=== PATIENT | male | born 1990 | race Hispanic/Latino ===

== ENCOUNTER 2019-03-24 07:52 | Emergency (ER) | payer SELFPAY ==
[2019-03-24] MEDS ORDERED: Morphine 4 MG/ML VIAL ONE (08:26)
[2019-03-24] MEDS ORDERED: Ondansetron PF 4 MG/2 ML Vial ONE (08:26)
[2019-03-24 08:50] LABS: #Lymphocytes 0.7 thou/uL (1.20-3.40); #Monocytes 0.6 thou/uL (0.11-0.59); #Neutrophils 8.8 thou/uL (1.40-6.50); %Basophils 0.1 % (0.0-1.0); %Eosinophils 0.4 % (0.0-10.0); %Lymphocytes 6.8 % (21.0-51.0); %Monocytes 6.2 % (0.0-10.0); %Neutrophils 86.5 % (42.0-75.0); Hemoglobin 14.1 g/dL (14.0-18.0); Mean Corpuscular HGB CONC 35.4 g/dL (32.0-36.0); Mean Corpuscular Hemoglobin 31.1 pg (27.0-31.0); Mean Platelet Volume 8.1 fL (7.4-10.4); Platelet Count 272 thou/uL (130-400); RBC Distribution Width 11.7 % (11.5-14.5); Red Blood Cell (RBC) Count 4.52 mill/uL (4.70-6.10); White Blood Cell (WBC) Count 10.2 thou/uL (4.8-10.8)
--- NOTE | 2019-03-24 09:07 | ULT ---
Exam: Right upper quadrant ultrasound: HISTORY: Right upper quadrant pain COMPARISON: None FINDINGS: Visualized liver:Borderline enlarged. Gallbladder:No evidence of gallstones, wall thickening, edema, or pericholecystic fluid. Common bile duct:Within normal limits. The visualized pancreas and right kidney are unremarkable. No evidence for abscess or abnormal fluid collection in the right upper quadrant. IMPRESSION: Unremarkable right upper quadrant ultrasound. No evidence of gallstones.
[2019-03-24 09:08] LABS: ALT (SGPT) 27 U/L (8-55); AST (SGOT) 16 U/L (5-34); Albumin 4.3 g/dL (3.5-5.0); Alkaline Phosphatase 98 U/L (40-150); Anion Gap 9 mmol/L (10-20); BUN (Urea Nitrogen) 15 mg/dL (8.9-20.6); Bilirubin, Total 0.9 mg/dL (0.2-1.2); Calc. Creatinine Clearance 0 mL/min (70-130); Calcium 8.8 mg/dL (7.8-10.44); Carbon Dioxide 25 mmol/L (22-29); Chloride 104 mmol/L (98-107); Estimated GFR-MDRD Greater than 90; Glucose 105 mg/dL (70-105); Lipase 25 U/L (8-78); Potassium 4.2 mmol/L (3.5-5.1); Protein, Total 7.3 g/dL (6.0-8.3); Sodium 134 mmol/L (136-145)
[2019-03-24] MEDS ORDERED: Mag-Al 1200 mg/1200 mg/30 ML UDCUP ONE (09:30)
[2019-03-24] MEDS ORDERED: Lidocaine Viscous Sol 2% 15 ml UD Cup ONE (09:30)
--- NOTE | 2019-03-24 09:38 | RAD ---
EXAM: Chest one view: HISTORY: Right upper quadrant abdominal pain, dizziness, weakness COMPARISON: None FINDINGS: Heart size: Within normal limits. Lungs: Patchy alveolar parenchymal changes in the right infrahilar region and right lower lobe with m inimal right hemidiaphragm elevation concerning for right lower lobe pneumonia/pneumonitis possibly with some associated partial atelectasis. IMPRESSION: Evidence for right lower lobe patchy pneumonia. Correlate clinically, consider follow-up for complete clearing.
--- NOTE | 2019-03-28 01:03 | EKG ---
Test Reason : ABD PAIN Blood Pressure : / mmHG Vent. Rate : 076 BPM Atrial Rate : 076 BPM P-R Int : 134 ms QRS Dur : 096 ms QT Int : 370 ms P-R-T Axes : 043 087 025 degrees QTc Int : 416 ms Normal sinus rhythm Normal ECG Confirmed by JANET DRUMMOND ([id number]), tape editor EDELMIRA SWARTZ ([id number]) on 03/28/2019 1:02:10 AM Referred By: HODA Confirmed By:JANET DRUMMOND
== END 2019-03-24 10:25 | disposition home or self-care (01) ==
LOC: ERS 07:52
DX: J18.9 Pneumonia, unspecified organism (principal)
CPT/HCPCS: 36415; 71045; 76705; 80053; 83690; 85025; 93005; 94760; 96361; 96374; 96375; J2270; J2405

== ENCOUNTER 2019-10-18 10:54 | Outpatient (CLI) | payer OTHER ==
--- NOTE | 2019-10-18 11:50 | RAD ---
CHEST 1 VIEW: DATE: 10/18/2019. TIME: 11:05 AM. HISTORY: Chest pain. COMPARISON: 03/24/2019. FINDINGS/IMPRESSION: The heart size is normal. There is a pleural-based mass in the right upper lateral chest. There is a right-sided pleural effusion and infiltrate/atelectatic change in the right lung base. The heart size is normal and the left lung is clear. The right-sided upper chest mass may be a loculated pleural effusion. Further evaluation with CT sca n is recommended. CODE T POS: EDDY
== END 2019-10-18 10:55 | disposition home or self-care (01) ==
LOC: BICRAD 10:54
PROVIDERS: ATTEND Family Medicine
DX: R91.8 Other nonspecific abnormal finding of lung field (principal); R07.89 Other chest pain
CPT/HCPCS: 71045

== ENCOUNTER 2019-11-02 15:27 | Emergency (ER) | payer SELFPAY | END 2019-11-02 18:45 | disposition home or self-care (01) | LOC: ERS 15:27 | DX: J90 Pleural effusion, not elsewhere classified (principal); Z87.891 Personal history of nicotine dependence | CPT/HCPCS: 99283 ==

== ENCOUNTER 2019-11-04 09:59 | Inpatient (IN) | payer OTHER, SELFPAY ==
[~2019-11-04 09:59] MED LIST: Dexamethasone 20 MG/5 ML VIAL ONE; EPHEDRINE 25 MG/5 ML SYRINGE ONE; Glycopyrrolate 0.2 MG/ML 5 ML SYRINGE ONE; Ondansetron PF 4 MG/2 ML Vial ONE; PHENYLEPHRINE-NS 100 MCG/ML 10 ML SYRINGE ONE; PROPOFOL 200 MG/20 ML VIAL ONE; Rocuronium Bromide 10 MG/ML (10ML VIAL) ONE; diphenhydrAMINE 50 MG/ML VIAL ONE
[2019-11-04 12:34] LABS: #Eosinphils 0.2 thou/uL (0.0-0.7); #Lymphocytes 2.1 thou/uL (1.20-3.40); #Monocytes 0.7 thou/uL (0.11-0.59); #Neutrophils 4.7 thou/uL (1.40-6.50); %Basophils 0.6 % (0.0-1.0); %Eosinophils 2.2 % (0.0-10.0); %Lymphocytes 26.7 % (21.0-51.0); %Monocytes 9.4 % (0.0-10.0); Hemoglobin 14.2 g/dL (14.0-18.0); Mean Corpuscular HGB CONC 32.8 g/dL (32.0-36.0); Mean Corpuscular Hemoglobin 29.2 pg (27.0-31.0); Mean Platelet Volume 7.4 fL (7.4-10.4); Platelet Count 427 thou/uL (130-400); RBC Distribution Width 11.6 % (11.5-14.5); Red Blood Cell (RBC) Count 4.86 mill/uL (4.70-6.10); White Blood Cell (WBC) Count 7.7 thou/uL (4.8-10.8)
[2019-11-04 12:56] LABS: Anion Gap 11 mmol/L (10-20); BUN (Urea Nitrogen) 8 mg/dL (8.9-20.6); Calc. Creatinine Clearance 169 mL/min (70-130); Calcium 9.4 mg/dL (7.8-10.44); Carbon Dioxide 26 mmol/L (22-29); Chloride 104 mmol/L (98-107); Estimated GFR-MDRD Greater than 90; Glucose 94 mg/dL (70-105); Potassium 4.4 mmol/L (3.5-5.1); Sodium 137 mmol/L (136-145)
[2019-11-04] MEDS ORDERED: Fentanyl 250 MCG/5 ML VIAL ONE (13:52)
[2019-11-04] MEDS ORDERED: Midazolam HCl 2 mg/2 ml Vial ONE ×2 (13:52→14:34)
[2019-11-04] MEDS ORDERED: Fentanyl 100 MCG/2 ML VIAL ONE ×3 (15:30→18:39)
[2019-11-04] MEDS ORDERED: SUGAMMADEX SODIUM 200 MG/2 ML VIAL ONE (15:31)
[2019-11-04] MEDS ORDERED: Insulin Regular 300 UNITS/3 ML VIAL SC PRN (17:38)
[2019-11-04] MEDS ORDERED: HYDROcodone/Acetaminophen 5/325 mg Tablet PO PRN ×2 (17:38)
[2019-11-04] MEDS ORDERED: Nitroglycerin 50 MG/250 ML BOT 250 ML IVPB PRN (17:38)
[2019-11-04] MEDS ORDERED: Ondansetron PF 4 MG/2 ML Vial IVP PRN ×2 (17:38→18:08)
[2019-11-04] MEDS ORDERED: Fentanyl 100 MCG/2 ML VIAL SLOW IVP PRN (17:38)
[2019-11-04] MEDS ORDERED: Promethazine HCl 25 MG/ML VIAL IM PRN ×3 (17:38→18:08)
[2019-11-04] MEDS ORDERED: Norepinephrine 8 MG/0.9% NS 250 ML IVPB PRN (17:38)
[2019-11-04] MEDS ORDERED: HYDROmorphone 2 MG/ML VIAL SLOW IVP PRN (18:01)
[2019-11-04] MEDS ORDERED: Promethazine HCl 25 MG/ML VIAL SLOW IVP PRN (18:01)
[2019-11-04] MEDS ORDERED: Ondansetron HCl/PF 4 MG/2 ML Vial IVP PRN (18:01)
[2019-11-04] MEDS ORDERED: Zolpidem Tartrate 5 MG TAB PO PRN (18:08)
[2019-11-04] MEDS ORDERED: Naloxone HCl 0.4 mg/ml Vial IV PRN (18:08)
[2019-11-04] MEDS ORDERED: diphenhydrAMINE 25 MG CAP PO PRN (18:08)
[2019-11-04] MEDS ORDERED: diphenhydrAMINE 50 MG/ML VIAL IM PRN (18:08)
[2019-11-04] MEDS ORDERED: diphenhydrAMINE 50 MG/ML VIAL IVP PRN (18:08)
[2019-11-04] MEDS ORDERED: Communication Order-Pharmacy FS SCH (18:15)
--- NOTE | 2019-11-04 18:35 | RAD ---
Chest one view HISTORY: Chest surgery. Follow-up. COMPARISON: 10/18/2019. FINDINGS: Cardiac silhouette is magnified by projection. Pulmonary vasculature upper limits of normal . Mediastinum is midline. There are 2 lateral thoracostomy tubes are now in place, directed towards the right apex and posterior mid right chest. Small amount of pleural gas and fluid remain. Significant atelectasis at the right base with elevation of the right hemidiaphragm. Left lung is clear. IMPRESSION : Interval placement of right thoracostomy tubes and drainage of loculated right pleural fluid. No evid ence of complication.
[2019-11-04] MEDS: Lactated Ringer's 1,000 ML IV SCH (19:30)
[2019-11-04 19:58] VITALS: BMI 32.8
[2019-11-04] MEDS: CEFAZOLIN 2 GM in Premix Bag 1 BAG IVPB SCH (23:05)
[2019-11-05 03:41] LABS: #Lymphocytes 0.8 thou/uL (1.20-3.40); #Monocytes 0.7 thou/uL (0.11-0.59); #Neutrophils 12.9 thou/uL (1.40-6.50); %Eosinophils 0.1 % (0.0-10.0); %Lymphocytes 5.6 % (21.0-51.0); %Monocytes 4.7 % (0.0-10.0); %Neutrophils 89.7 % (42.0-75.0); Hemoglobin 13.2 g/dL (14.0-18.0); Mean Corpuscular HGB CONC 34.6 g/dL (32.0-36.0); Mean Corpuscular Hemoglobin 30.6 pg (27.0-31.0); Mean Corpuscular Volume 88.6 fL (78.0-98.0); Mean Platelet Volume 7.6 fL (7.4-10.4); Platelet Count 375 thou/uL (130-400); RBC Distribution Width 11.6 % (11.5-14.5); Red Blood Cell (RBC) Count 4.32 mill/uL (4.70-6.10); White Blood Cell (WBC) Count 14.4 thou/uL (4.8-10.8)
[2019-11-05 03:57] LABS: Anion Gap 16 mmol/L (10-20); BUN (Urea Nitrogen) 8 mg/dL (8.9-20.6); Calc. Creatinine Clearance 175 mL/min (70-130); Calcium 8.7 mg/dL (7.8-10.44); Carbon Dioxide 21 mmol/L (22-29); Chloride 101 mmol/L (98-107); Estimated GFR-MDRD Greater than 90; Glucose 126 mg/dL (70-105); Potassium 4.4 mmol/L (3.5-5.1); Sodium 134 mmol/L (136-145)
[2019-11-05] MEDS: CEFAZOLIN 2 GM in Premix Bag 1 BAG IVPB SCH ×2 (05:01→14:13)
--- NOTE | 2019-11-05 07:18 | PRG ---
DATE OF SERVICE: 11/05/2019 The patient is now postop day 1 from a thoracotomy and total lung decortication and drainage of a gelatinous fluid collection. These having obtained from his surgical site, and he is using his [employer] pump on a more than regular basis. His vital signs have been stable with a blood pressure of greater than 100 and a heart rate of about 90. Chest tube output has totaled about 400 since surgery. He was not on suction overnight due to a rather large air leak; however, I did place him on suction this morning, and his chest x-ray is improved from yesterday. His laboratory values reveal a hemoglobin of 13.2, which is stable, and his electrolytes are satisfactory. He does have good breath sounds bilaterally. The plan at this time would be to transfer him to the floor, continued chest tube suction, and begin physical therapy. Await culture results and histology results. Job ID: [id number]
[2019-11-05] MEDS: Lactated Ringer's 1,000 ML IV SCH (07:51)
--- NOTE | 2019-11-05 09:06 | RAD ---
PORTABLE CHEST: DATE: 11/05/2019. PROVIDED CLINICAL HISTORY: Status post thoracotomy. FINDINGS: Comparison is made with 11/04/2019. Interval development of pleural-based opacity lateral to the more cranial of the 2 right-sided chest tubes, which remain in similar position. There is pleural gas se en with pleural line overlying the right third rib medially. Right basilar consolidation persists. The left lung remains clear. There is no shift of the mediastinal contents. IMPRESSION: Development of right pleural opacity. POS: DEANDRA
--- NOTE | 2019-11-05 09:09 | PRG ---
DATE OF SERVICE: 11/05/2019 SUBJECTIVE: A 30-year-old gentleman, status post decortication for loculated empyema, events noted as by Dr. Ji. OBJECTIVE: GENERAL: This morning, he is awake, responsive, in pain, but no shortness of breath. VITAL SIGNS: Saturations are 96%, pulse 71, blood pressure 106/55. CHEST: Decreased breath sounds without any wheezing. CARDIAC: Normal S1, S2. No gallops. ABDOMEN: No mass. IMPRESSION: Status post decortication for empyema. I will start him on oral Augmentin. His white count is 14,000. Continue supportive care, PT. We will follow. Job ID: [id number]
[2019-11-05] MEDS: Amoxicillin/Potassium Clav 875 MG TAB PO SCH ×2 (09:11→20:42)
[2019-11-05] MEDS: Doxycycline 100 MG CAP PO SCH ×2 (09:11→20:42)
[2019-11-05] MEDS ORDERED: Enoxaparin Sodium 40 MG/0.4 ML SYRINGE SC SCH (10:30)
[2019-11-05] MEDS: Enoxaparin Sodium 40 MG/0.4 ML SYRINGE SC SCH (11:57)
[2019-11-05] MEDS: fentaNYL Citrate/PF 2,000 MCG in Sodium Chloride 0.9% 60 ML IV PRN (14:30)
--- NOTE | 2019-11-06 07:35 | RAD ---
CHEST ONE VIEW PORTABLE: History: Status post thoracotomy. Comparison: 11-05-2019 FINDINGS: Persistent stable pleural and parenchymal opacity changes in the right chest with two chest tubes in place. No evidence for pneumothorax. The left chest is clear. Heart size is normal. IMPRESSION: Post op pleural and parenchymal changes in the right chest. No convincing evidence for acute pneumoth orax. Continued short term follow up. POS: [facility]JDI
[2019-11-06] MEDS: Amoxicillin/Potassium Clav 875 MG TAB PO SCH ×2 (08:16→19:33)
[2019-11-06] MEDS: Enoxaparin Sodium 40 MG/0.4 ML SYRINGE SC SCH (08:17)
[2019-11-06] MEDS: Doxycycline 100 MG CAP PO SCH ×2 (08:19→19:33)
--- NOTE | 2019-11-06 11:32 | PRG ---
DATE OF SERVICE: 11/06/2019 SUBJECTIVE: He is complaining of some right-sided pain. He says about 5/10. He is walking the halls with chest tube still in place. Appears to be ambulating well. OBJECTIVE: VITAL SIGNS: Temperature 99.6, pulse 91, respirations 14, O2 saturation 95% on 2 L, and blood pressure 123/73. HEENT: Unremarkable. NECK: No adenopathy or JVD. LUNGS: He has diminished breath sounds in the right base. CARDIAC: S1 and S2, regular. ABDOMEN: Soft. EXTREMITIES: No edema. IMAGING DATA: X-ray looks appropriate for post thoracotomy. ASSESSMENT: Right-sided empyema, now status post thoracotomy. PLAN: The patient is continuing Augmentin. Hopefully, he will be able to go home soon after chest tubes are out. Job ID: [id number]
[2019-11-06] MEDS: fentaNYL Citrate/PF 2,000 MCG in Sodium Chloride 0.9% 60 ML IV PRN (17:13)
--- NOTE | 2019-11-07 08:33 | RAD ---
PORTABLE CHEST ONE VIEW: HISTORY: Status post thoracotomy. FINDINGS: Two right chest tubes in place with persistent pleural and parenchymal opacity changes in the right c hest, stable. Minimal linear streaky parenchymal changes in the left chest, mid and lower lung zones primarily. IMPRESSION: Overall stable chest. Continue short-term followup. POS: [facility]DI
[2019-11-07] MEDS: Enoxaparin Sodium 40 MG/0.4 ML SYRINGE SC SCH (09:15)
[2019-11-07] MEDS: Amoxicillin/Potassium Clav 875 MG TAB PO SCH ×2 (09:15→21:09)
[2019-11-07] MEDS: Doxycycline 100 MG CAP PO SCH ×2 (09:15→21:09)
--- NOTE | 2019-11-07 11:26 | PRG ---
DATE OF SERVICE: 11/07/2019 SUBJECTIVE: He complains of right-sided chest pain at the chest tube site. OBJECTIVE: VITAL SIGNS: His temperature 99.5, pulse 86, respirations 18, O2 saturation 93% on room air, and blood pressure 121/73. HEENT: Unremarkable. NECK: No adenopathy or JVD. CHEST: Fairly clear anteriorly. Diminished breath sounds right base posteriorly. CARDIAC: S1 and S2. Regular. ABDOMEN: Soft. EXTREMITIES: No edema. ASSESSMENT: Right-sided empyema, now status post decortication. Would presume this was probably all due to pneumococcal pneumonia. PLAN: Continue chest tube drainage. Continue Augmentin. Hopefully, chest tubes will be out soon. He will be able to go home. Job ID: [id number]
[2019-11-07] MEDS ORDERED: Milk Of Magnesia 30 ML UDCUP PO PRN (14:05)
[2019-11-07] MEDS: Polyethylene Glycol 3350 17 GM Packet PO PRN (16:09)
[2019-11-07] MEDS ORDERED: HYDROcodone/Acetaminophen 10/325 mg Tablet PO PRN (18:26)
[2019-11-08] MEDS: HYDROcodone/Acetaminophen 10/325 mg Tablet PO PRN ×5 (00:30→20:45)
[2019-11-08] MEDS: Amoxicillin/Potassium Clav 875 MG TAB PO SCH ×2 (08:28→20:45)
[2019-11-08] MEDS: Enoxaparin Sodium 40 MG/0.4 ML SYRINGE SC SCH (08:28)
[2019-11-08] MEDS: Doxycycline 100 MG CAP PO SCH ×2 (08:28→20:45)
--- NOTE | 2019-11-08 09:07 | RAD ---
CHEST 1 VIEW: Date: 11/08/2019 HISTORY: Status post thoracotomy. FINDINGS: Stable cardiac silhouette. Stable aeration of the left lung. Two right-sided chest tubes are unchange d in position. There is persistent and essentially stable opacification of right hemithorax due to pl eural and parenchymal changes. IMPRESSION: No significant interval change. POS: OFF
--- NOTE | 2019-11-08 10:18 | PRG ---
DATE OF SERVICE: 11/08/2019 SUBJECTIVE: This morning, he is still having some pain. OBJECTIVE: VITAL SIGNS: Temperature 98, pulse 78, respirations 20, saturations 95% on room air, blood pressure 117/71. CHEST: Decreased breath sounds, right. No wheezing, no crackles. CARDIAC: Normal S1, S2. ABDOMEN: No masses. LABORATORY DATA: All cultures are negative. Right lung empyema decortication. Doxycycline and amoxicillin on board. Home vent. Chest tube is removed. We will follow Job ID: [id number] MTDD
--- NOTE | 2019-11-08 16:53 | PRG ---
DATE OF SERVICE: 11/08/2019 The patient is afebrile with stable vital signs. His chest tube output was minimal in the last 24 hours at about 40 mL of drainage. He has no air leak. His chest x-ray shows a rind on the lateral aspect with some resolving infiltrate in the mid-lung field. We will go ahead and remove his chest tubes today with instructions to keep this dressing intact for two days and may discharge home. Presently, he has negative cultures from the fluid that was removed, and is on oral antibiotics per Dr. Paez. Job ID: [id number]
[2019-11-08] MEDS: traMADol HCl 50 MG TAB PO PRN (16:59)
[2019-11-09] MEDS: HYDROcodone/Acetaminophen 10/325 mg Tablet PO PRN ×5 (03:37→21:48)
[2019-11-09] MEDS: Polyethylene Glycol 3350 17 GM Packet PO PRN (05:49)
[2019-11-09] MEDS: traMADol HCl 50 MG TAB PO PRN ×2 (05:55→15:14)
[2019-11-09] MEDS: Amoxicillin/Potassium Clav 875 MG TAB PO SCH ×2 (08:39→21:49)
[2019-11-09] MEDS: Doxycycline 100 MG CAP PO SCH ×2 (08:39→21:48)
[2019-11-09] MEDS: Enoxaparin Sodium 40 MG/0.4 ML SYRINGE SC SCH (08:42)
--- NOTE | 2019-11-09 09:38 | PRG ---
DATE OF SERVICE: 11/09/2019 SUBJECTIVE: This morning, he is awake, alert, responsive. Chest tube was removed. OBJECTIVE: VITAL SIGNS: His maximum temperature is 98, pulse 70, respirations 16, on room air, and blood pressure . CHEST: No wheezing or crackles. CARDIAC: Normal S1, S2. No gallops. ABDOMEN: No masses. ASSESSMENT AND PLAN: Decortication, right chest. All cultures are negative. Discharge to home. He can be seen in the office in 2 to 3 weeks. Job ID: [id number]
[2019-11-10] MEDS: HYDROcodone/Acetaminophen 10/325 mg Tablet PO PRN ×2 (02:14→06:17)
[2019-11-10 07:05] VITALS: BP 109/63; TEMP 97.8
[2019-11-10] MEDS: Amoxicillin/Potassium Clav 875 MG TAB PO SCH (07:55)
[2019-11-10] MEDS: Enoxaparin Sodium 40 MG/0.4 ML SYRINGE SC SCH (07:55)
[2019-11-10] MEDS: Doxycycline 100 MG CAP PO SCH (08:27)
--- NOTE | 2019-11-12 14:40 | OP ---
DATE OF PROCEDURE: 11/04/2019 The patient was taken to the operating room with a diagnosis of right empyema. Initially, attempts were made to perform thoracoscopy; however, the lung was densely adherent as discovered, subsequently when a partial thoracotomy was performed and there was blunt injury to the lung. The lung was tediously mobilized through this thoracotomy incision, was more anterior than posterior. It was felt that the effusion was anterior. However, on mobilization and decortication, it was felt to be a posterior gelatinous collection of fluid, which was completely evacuated. There were multiple pulmonary lacerations developed during the lysis of adhesions and removing the lung from the chest wall. Blood loss was about 300, and two chest tubes were left in place. The ribs were reapproximated with catgut sutures, and muscle was loosely reapproximated. Job ID: [id number]
--- NOTE | 2019-11-12 14:40 | DIS ---
DATE OF ADMISSION: 11/04/2019 DATE OF DISCHARGE: 11/10/2019 The patient was admitted to the hospital after being seen by Dr. Paez in the office with fluid collection, empyema and loculations in the right chest. He was taken to the operating room where he underwent a full right-sided decortication. Postoperatively, he had his chest tubes removed and his air leak and fluid drainage resolved. He had significant discomfort for which he was treated with oral and IV pain medicines. He will be discharged home on Augmentin 875 b.i.d. for 7 days, as well as hydrocodone 10/325. Discharge and followup instructions have been given. Job ID: [id number]
--- NOTE | 2019-11-25 07:44 | PQF ---
KALI MACK JAMES M MD [id number] CLINICAL DOCUMENTATION CLARIFICATION FORM: POST DISCHARGE Addendum to original discharge summary date: ____ Late entry note date: __ DATE: 11/25/19 ATTN:Chalo Ji Please exercise your independent, professional judgment in responding to the clarification form. Clinical indicators are provided on the bottom of this form for your review Please check appropriate box(s): In the description of the operative procedure a blunt injury of the lung was noted by the surgeon. If possible would you please further clarify if this was: [ y ] Incidental occurrence inherent in the surgical procedure [ ] Complication of the procedure [ ] Other please specify [ ] Unable to determine For continuity of documentation, please document condition throughout progress notes and discharge summary. Thank You. CLINICAL INDICATORS - SIGNS / SYMPTOMS / LABS OP report pg.1- partial thoracotomy was performed and there was a blunt injury to the lung. OP report pg.1- There were multiple pulmonary lacerations developed during lysis of adhesions and removing the lung from the chest wall. RISK FACTORS status post decortication- PN pg. Empyema- PN pg.1 11/04 Presence of Chest tube PN pg 1 10/20 TREATMENTS: Chest X ray 11/03 Cefazolin 2gm IV- MAR Amoxicillin 875 mg PO MAR Doxycycline 100 mg PO- MAR (This form is maintained as a part of the permanent medical record) 2014 [employer]. All Rights Reserved [email or web address]
--- NOTE | 2019-11-25 07:47 | PQF ---
[employer] In[employer] Winform Viewer KALI MACK JAMES M MD [id number] CLINICAL DOCUMENTATION CLARIFICATION FORM: POST DISCHARGE Addendum to original discharge summary date: ____ Late entry note date: __ DATE: 11/25/19 ATTN:Chalo Ji Please exercise your independent, professional judgment in responding to the clarification form. Clinical indicators are provided on the bottom of this form for your review Can you please further clarify if Pneumococcal pneumonia is ruled in or ruled out? Pneumococcal pneumonia [ ] Ruled in diagnosis [ ] Continue to treat [ ] Resolved [ ] Ruled out diagnosis [ ] Cannot rule out diagnosis [ ] Other diagnosis please specify [ y] Unable to determine In addition, please specify: Present on Admission (POA): [ ] Yes [ ] No [ ] Unable to determine For continuity of documentation, please document condition throughout progress notes and discharge summary. Thank You. CLINICAL INDICATORS - SIGNS / SYMPTOMS / LABS PN 11/06- Would presumed this was probably all due to pneumococcal pneumonia PN 11/04 pg.1- Post OP day 1 from thoracotomy and lung decortication and drainage of a gelatinous fluid collection PN 11/04- Decreased breath sounds w/o any wheezing PN 11/05- Lungs: Diminished breath sounds in the right base PN 11/07- All cultures are negative Laboratory- WBC 7.7, 14.4H Chest Xray pg 1 11/06 parenchymal opacity changes in the right chest RISK FACTORS status post decortication- PN pg. Empyema- PN pg.1 11/04 Presence of Chest tube PN pg 1 11/08 TREATMENTS Chest X ray 11/03 Cefazolin 2gm IV- MAR Amoxicillin 875 mg PO MAR Doxycycline 100 mg PO- MAR Decortication- OP report pg.1 IV Fluids- MAR (This form is maintained as a part of the permanent medical record) 2014 [employer]. All Rights Reserved Chaz Nomat JACKELYN
== END 2019-11-10 10:00 | disposition home or self-care (01) | DRG 164 ==
LOC: INTOOBSV 11:58 → OBSVTOIN 11:58 → SURG A 11:58 → CCU 18:51 → SURG A 11-05 09:47
PROVIDERS: ADMIT Thoracic Surgery (Cardiothoracic Vascular Surgery); ATTEND Thoracic Surgery (Cardiothoracic Vascular Surgery)
PROC: 0BCK4ZZ Extirpation of Matter from Right Lung, Percutaneous Endoscopic Approach (ICD-10-PCS; principal; 2019-11-04)
DX: J86.9 Pyothorax without fistula (principal); J90 Pleural effusion, not elsewhere classified; J93.82 Other air leak; Z90.49 Acquired absence of other specified parts of digestive tract
CPT/HCPCS: 36415; 36416; 71045; 80048; 85025; 87070; 87205; 88305; 88312; J0690; J1100; J1200; J1642; J1650; J2250; J2405; J2704; J3010; J3490

== ENCOUNTER 2019-11-23 13:15 | Outpatient (CLI) | payer OTHER ==
--- NOTE | 2019-11-23 14:12 | RAD ---
EXAM: Chest PA and lateral: HISTORY: Pain on inspiration COMPARISON: 11/08/2019 FINDINGS: Interval removal of right-sided chest tubes. Heart: Normal cardiac silhouette Aorta: Unremarkable Pulmonary vessels: Normal Costophrenic angles: Stable right-sided pleural effusion with loculated fluid in the minor fissure. Lungs: Chronic lung parenchymal changes in the right lung base. Pneumothorax: No pneumothorax Osseous structures: No osseous abnormalities IMPRESSION: 1. Interval removal of right-sided chest tubes. 2. No pneumothorax 3. Stable right-sided pleural fluid
== END 2019-11-23 13:16 | disposition home or self-care (01) ==
LOC: RAD 13:15
PROVIDERS: ATTEND Family Medicine
DX: R07.1 Chest pain on breathing (principal)
CPT/HCPCS: 71046